=== PATIENT | male | born 2000 | race Caucasian/White ===

== ENCOUNTER → 2020-05-29 11:48 | Outpatient (CLI) | payer BC, SELFPAY ==
--- NOTE | 2020-05-29 12:09 | XR_ITS ---
PROCEDURE: XR SHOULDER RT MIN 2V CLINICAL INDICATION: INJURY TO R SHOULDER Pain following injury COMPARISON: No exams were available for comparison FINDINGS: No fracture or dislocation. No lytic or blastic change. There is normal mineralization. The joint spaces are well-preserved. No significant degenerative/arthritic changes. No erosive changes evident. Other findings:None. IMPRESSION: No acute findings. Dictated by: Farhad Calderon MD 05/29/2020 12:24 Electronically signed by Farhad Calderon MD in [place] 05/29/2020 12:24
== END ==
PROVIDERS: PCP Family Medicine; Visit Provider Nurse Practitioner Family
DX: S49.91XA Unspecified injury of right shoulder and upper arm, initial encounter (principal); M25.611 Stiffness of right shoulder, not elsewhere classified
CPT/HCPCS: 73030

== ENCOUNTER → 2020-06-09 07:51 | Outpatient (CLI) | payer BC, SELFPAY | PROVIDERS: PCP Family Medicine; Visit Provider Nurse Practitioner Family | DX: M25.611 Stiffness of right shoulder, not elsewhere classified (principal) ==

== ENCOUNTER 2021-04-16 18:23 | Emergency (ER) | payer BC, SELFPAY ==
[2021-04-16 18:30] VITALS: BP 136/91; PULSE 76; RESP 19; TEMP 36.8; O2SAT 100; BMI 33.0
--- NOTE | 2021-04-16 19:11 | HMH.EDUTC ---
[facility] [place] Clinical Impression: Sinusitis Qualifiers: Sinusitis location: unspecified location Chronicity: unspecified Qualified Code(s): J32.9 - Chronic sinusitis, unspecified Disposition: Home, Self-Care Condition on Discharge: Good Instructions: Sinusitis, DI for Sinusitis, DI for COVID-19 (Suspected or Confirmed ), Coronavirus Disease 2018, Preventing the Spread of Coronavirus Discharge Instructions Additional Instructions: *Monitor Temp, Over the counter Motrin or Tylenol as directed/as needed Tylenol every 4 hours and Motrin every 6 hours (as long as your family doctor has told you that you can take it) for fever or pain. and straight to ER if unable to lower temp less than 101.0 after medication given *Warm salt water gargles may help to soothe the throat *Throat Lozenges *Warm fluids like tea with honey may help to soothe the throat *Sleep elevated *Humidifier/Vaporizer *Flonase 2 sprays in each nostril daily but be aware that it may take 2-3 days before you notice improvement Follow up IMMEDIATELY for new or worsening symptoms or no Noticeable improvement over the next 48-72 hours. 911 for difficulty breathing or swallowing You were tested for today for COVID19 your test result should be back in the next 24-48 hours, you may call to the [facility] to see if your test results are back in the next 48 hours [phone] [facility] hours are 9am-9pm You was given a handout with instructions for Self Quarantine and Self isolation for while you wait on test results and what to do if they are positive If you are positive the Health Dept will be contacting you also Prescriptions: Fluticasone Propionate [Flonase 50mcg nasal spray 16gm] 1 spr NS DAILY #1 bottle Transmission Status: Pending to [facility] Azithromycin [Z-Regino 250mg Tab] 250 mg PO DIRECTED #6 tab Transmission Status: Pending to [facility] Referrals: Morgan Garcia MD [Primary Care Provider] - As needed Forms: Work/School Release Time of Disposition: 19:23 Medical Decision Making - Aki Inquiry Pt receiving controlled substance: No Aki was queried for this patient: No Vital Signs: 04/16/21 18:30 Temperature 98.2 F Temperature Source Oral Pulse Rate [Right Brachial] 76 Respiratory Rate 19 Blood Pressure [Right Arm] 136/91 H Blood Pressure Mean [Right Arm] 106 Blood Pressure Source [Right Arm] Automatic Cuff Blood Pressure Position [Right Arm] Sitting 02 Sat by Pulse Oximetry 100 Oxygen Delivery Method Room Air Orders (Tests/Meds): ORDERS Category Date Time Status Covid-19 Nasal PCR ([facility]) Routine Lab 04/16/21 19:02 Ordered [facility] UTC HPI - General Stated complaint: Covid Swab Time Seen by Provider: 04/16/21 19:11 Mode of Arrival: Ambulatory Source of Information: Patient Limitations: No Limitations Description of Symptoms (Recalled from Triage Doc. by RN): PATIENT C/O SINUS PRESSURE AND CONGESTION X 3 DAYS HEENT Symptoms (Recalled from RN notes): Yes Resp Symptoms (Recalled from RN notes): No Skin Symptoms (Recalled from RN notes): No MS Symptoms (Recalled from RN notes): No Functional Status (Recalled from RN notes): WNL - History of Present Illness Provider Complaint: Patient states that he started over a week ago with sinus pressure State that on Friday he noticed he couldnt smell anything and since feels like it is trying to move into his chest States that sinus pressure is behind his eyes but he has not been able to blow anything out of his nose Statse that today he was still feeling bad so he came in to get checked and tested for COVID - Related Data Previous Rx's Medication Instructions Recorded Azithromycin [Z-Regino 250mg Tab] 250 mg PO DIRECTED #6 tab 04/16/21 Fluticasone Propionate [Flonase 1 spr NS DAILY #1 bottle 04/16/21 50mcg nasal spray 16gm] Allergies Allergy/AdvReac Type Severity Reaction Status Date / Time No Known Allergies Allergy Verified 08/28/18 13:56 - Worker's Comp
[2021-04-16 19:18] VITALS: BP 136/91; PULSE 76; RESP 19; TEMP 36.8; O2SAT 100
--- NOTE | 2021-04-17 11:33 | PC.NURSE ---
PT NOTIFIED OF POSITIVE COVID RESULTS
== END 2021-04-16 19:20 | disposition home or self-care (01) ==
PROVIDERS: Emergency Provider Nurse Practitioner; PCP Family Medicine
DX: U07.1 COVID-19 (principal)
CPT/HCPCS: 99202; G0463; U0003

== ENCOUNTER 2021-07-30 17:56 | Emergency (ER) | payer BC, SELFPAY ==
[2021-07-30 19:05] VITALS: BP 136/88; PULSE 76; RESP 18; TEMP 36.9; O2SAT 99; BMI 31.4
--- NOTE | 2021-07-30 19:25 | HMH.EDUTC ---
[facility] – [place] Disposition Clinical Impression: Strep throat Disposition: Home, Self-Care Condition on Discharge: Good Instructions: DI for Strep Throat, Strep Throat, Amoxicillin Additional Instructions: *Monitor Temp, Over the counter Motrin or Tylenol as directed/as needed Tylenol every 4 hours and Motrin every 6 hours (as long as your family doctor has told you that you can take it) for fever or pain. and straight to ER if unable to lower temp less than 101.0 after medication given *Warm salt water gargles may help to soothe the throat *Throat Lozenges *Warm fluids like tea with honey may help to soothe the throat *Sleep elevated *Humidifier/Vaporizer *If you did not take Penicillin shot or was unable to, start taking antibiotic immediately and make sure that you take it for the FULL length of time although you should start to feel better in 24-48 hours *change toothbrush and toothpaste 24-48 hours after starting to take antibiotics so you do not reinfect yourself Monitor Temp. Tylenol and/or Ibuprofen as needed. ER if fever is no less than 101 despite alternating Tylenol and Ibuprofen * Encourage fluids, water, Gatorade, powerade, pedialyte if /toddler/or child *Cold fluids, popsicles and ice cream may feel good on his throat Follow up IMMEDIATELY for new or worsening symptoms or no Noticeable improvement over the next 48-72 hours. 911 for difficulty breathing or swallowing Prescriptions: Amoxicillin [Amoxicillin 875MG Tab] 875 mg PO Q12H #20 tab Transmission Status: Pending to [facility] Referrals: Morgan Garcia MD [Primary Care Provider] - As needed Forms: Work/School Release Time of Disposition: 19:28 Medical Decision Making - Aki Inquiry Pt receiving controlled substance: No Aki was queried for this patient: No Vital Signs: 07/30/21 19:05 Temperature 98.5 F Temperature Source Oral Pulse Rate [Right Brachial] 76 Respiratory Rate 18 Blood Pressure [Right Radial Artery] 136/88 Blood Pressure Mean [Right Radial Artery] 104 Blood Pressure Source [Right Radial Artery] Automatic Cuff Blood Pressure Position [Right Radial Artery] Sitting 02 Sat by Pulse Oximetry 99 Oxygen Delivery Method Room Air - Lab Data Lab results reviewed: Yes: I reviewed the patient's lab results. [facility] [place] HPI - General Stated complaint: ears/sore throat,congestion Time Seen by Provider: 07/30/21 19:25 Mode of Arrival: Ambulatory Source of Information: Patient Limitations: No Limitations Description of Symptoms (Recalled from Triage Doc. by RN): PATIENT C/O EAR ACHE AND BLISTERS ON THROAT HEENT Symptoms (Recalled from RN notes): No Resp Symptoms (Recalled from RN notes): No Skin Symptoms (Recalled from RN notes): No MS Symptoms (Recalled from RN notes): No Functional Status (Recalled from RN notes): WNL - History of Present Illness Provider Complaint: Patient states that he has been having sore throat, blisters on his throat and pain in his right ear for about 4 days States that today he was still feeling bad so mother told him he needed to come in and get checked - Related Data Previous Rx's Medication Instructions Recorded Azithromycin [Z-Regino 250mg Tab] 250 mg PO DIRECTED #6 tab 04/16/21 Fluticasone Propionate [Flonase 1 spr NS DAILY #1 bottle 04/16/21 50mcg nasal spray 16gm] Amoxicillin [Amoxicillin 875MG 875 mg PO Q12H #20 tab 07/30/21 Tab] Allergies Allergy/AdvReac Type Severity Reaction Status Date / Time No Known Allergies Allergy Verified 08/28/18 13:56 - Worker's Comp Is this a Worker's Comp case?: No [facility] History - Hepatitis A Screen Drug use history?: No High risk sexual behaviors?: No History of sexually transmitted infection?: No Currently employed?: No Childcare worker?: No Do you have indoor plumbing?: Yes Do you have electricity?: Yes Attestation statement:: This patient has been screened for Hepatitis A risk factors. I have reviewed the patien
[2021-07-30 19:30] VITALS: BP 136/88; PULSE 76; RESP 18; TEMP 36.9; O2SAT 99
[2021-07-30 19:30] LABS: UTC Strep Screen (Rapid) Positive (Negative)
== END 2021-07-30 19:35 | disposition home or self-care (01) ==
PROVIDERS: Emergency Provider Nurse Practitioner; PCP Family Medicine
DX: J02.0 Streptococcal pharyngitis (principal)
CPT/HCPCS: 87880; 99202; G0463

== ENCOUNTER 2021-08-20 13:56 | Emergency (ER) | payer BC, SELFPAY ==
[2021-08-20 14:00] VITALS: BP 156/86; PULSE 78; RESP 20; TEMP 36.8; O2SAT 98; BMI 32.1
[2021-08-20 14:21] LABS: UTC Strep Screen (Rapid) Positive (Negative)
--- NOTE | 2021-08-20 14:41 | HMH.EDUTC ---
[facility] – [place] Disposition Clinical Impression: Strep throat Disposition: Home, Self-Care Condition on Discharge: Good Instructions: DI for Strep Throat, Strep Throat, Azithromycin Additional Instructions: *Monitor Temp, Over the counter Motrin or Tylenol as directed/as needed Tylenol every 4 hours and Motrin every 6 hours (as long as your family doctor has told you that you can take it) for fever or pain. and straight to ER if unable to lower temp less than 101.0 after medication given *Warm salt water gargles may help to soothe the throat *Throat Lozenges *Warm fluids like tea with honey may help to soothe the throat *Sleep elevated *Humidifier/Vaporizer *If you did not take Penicillin shot or was unable to, start taking antibiotic immediately and make sure that you take it for the FULL length of time although you should start to feel better in 24-48 hours *change toothbrush and toothpaste 24-48 hours after starting to take antibiotics so you do not reinfect yourself Monitor Temp. Tylenol and/or Ibuprofen as needed. ER if fever is no less than 101 despite alternating Tylenol and Ibuprofen * Encourage fluids, water, Gatorade, powerade, pedialyte if /toddler/or child *Cold fluids, popsicles and ice cream may feel good on his throat Follow up IMMEDIATELY for new or worsening symptoms or no Noticeable improvement over the next 48-72 hours. 911 for difficulty breathing or swallowing Prescriptions: Azithromycin [Z-Regino 250mg Tab] 250 mg PO DIRECTED #6 tab Transmission Status: Pending to [facility] Referrals: Morgan Garcia MD [Primary Care Provider] - As needed Time of Disposition: 14:48 Medical Decision Making - Aki Inquiry Pt receiving controlled substance: No Aki was queried for this patient: No Vital Signs: 08/20/21 14:00 Temperature 98.3 F Temperature Source Oral Pulse Rate [Right Brachial] 78 Respiratory Rate 20 Blood Pressure [Right Arm] 156/86 H Blood Pressure Mean [Right Arm] 109 Blood Pressure Source [Right Arm] Automatic Cuff Blood Pressure Position [Right Arm] Sitting 02 Sat by Pulse Oximetry 98 Oxygen Delivery Method Room Air - Lab Data Lab results reviewed: Yes: I reviewed the patient's lab results. Lab Results 08/20/21 14:16: Strep Scn Rapid Clinic Positive A Medical Decision Narrative: Patient educated on importance of completing medication as prescribed [facility] [place] HPI - General Stated complaint: Sore thorat Time Seen by Provider: 08/20/21 14:41 Mode of Arrival: Ambulatory Source of Information: Patient Limitations: No Limitations Description of Symptoms (Recalled from Triage Doc. by RN): PATIENT C/O SORE THROAT. PATIENT STATES HE WAS DX WITH STREP AND GIVEN AMOXICILLIN, HOWEVER DID NOT FINISH MEDICATION D/T SIDE EFFECTS. HEENT Symptoms (Recalled from RN notes): Yes Resp Symptoms (Recalled from RN notes): No Skin Symptoms (Recalled from RN notes): No MS Symptoms (Recalled from RN notes): No Functional Status (Recalled from RN notes): WNL - History of Present Illness Provider Complaint: Patient states that he was treated for strep throat a few weeks ago but did not finish taking the medication because it made him feel loopy States that since then he started with sore throat again and hurts when he swallows so he came back in thinking that the infection was back - Related Data Previous Rx's Medication Instructions Recorded Azithromycin [Z-Regino 250mg Tab] 250 mg PO DIRECTED #6 tab 08/20/21 Allergies Allergy/AdvReac Type Severity Reaction Status Date / Time No Known Allergies Allergy Verified 08/28/18 13:56 - Worker's Comp Is this a Worker's Comp case?: No [facility] History - Hepatitis A Screen Drug use history?: No High risk sexual behaviors?: No History of sexually transmitted infection?: No Currently employed?: No Childcare worker?: No Do you have indoor plumbing?: Yes Do you have electricity?: Yes Attestation statement:: This patie
[2021-08-20 14:52] VITALS: BP 156/86; PULSE 78; RESP 20; TEMP 36.8; O2SAT 98
== END 2021-08-20 14:53 | disposition home or self-care (01) ==
PROVIDERS: Emergency Provider Nurse Practitioner; PCP Family Medicine
DX: J02.0 Streptococcal pharyngitis (principal)
CPT/HCPCS: 87880; 99202; G0463

== ENCOUNTER 2021-09-09 10:31 | Emergency (ER) | payer BC, SELFPAY ==
[2021-09-09 11:00] VITALS: BP 138/76; PULSE 87; RESP 19; TEMP 37.1; O2SAT 99; BMI 31.4
--- NOTE | 2021-09-09 11:23 | HMH.EDUTC ---
[place] Disposition Clinical Impression: Sore throat (viral) Disposition: Home, Self-Care Condition on Discharge: Good Instructions: Sore Throat, Clotrimazole Topical Additional Instructions: Over the counter Lotrimin cream may help with dry scaley rash on arm Warm salt water gargles may help with sore throat Follow up with your Family Doctor if no improvement or any worsening of symptoms Return if needed Straight to ER if any life threatening symptoms Referrals: Morgan Garcia MD [Primary Care Provider] - As needed Time of Disposition: 11:44 Medical Decision Making - Aki Inquiry Pt receiving controlled substance: No Aki was queried for this patient: No Vital Signs: 09/09/21 11:00 Temperature 98.7 F Temperature Source Oral Pulse Rate [Right Brachial] 87 Respiratory Rate 19 Blood Pressure [Right Arm] 138/76 Blood Pressure Mean [Right Arm] 96 Blood Pressure Source [Right Arm] Automatic Cuff Blood Pressure Position [Right Arm] Sitting 02 Sat by Pulse Oximetry 99 Oxygen Delivery Method Room Air - Lab Data Lab results reviewed: Yes: I reviewed the patient's lab results. Lab Results 09/09/21 11:31: Strep Scn Rapid Clinic Negative Orders (Tests/Meds): ORDERS Category Date Time Status Strep Screen Confirmation Stat Micro 09/09/21 11:31 Received [place] HPI - General Stated complaint: soa Time Seen by Provider: 09/09/21 11:23 Mode of Arrival: Ambulatory Source of Information: Patient Limitations: No Limitations Description of Symptoms (Recalled from Triage Doc. by RN): PATIENT C/O SWOLLEN LYMPH NODES AND SOA HEENT Symptoms (Recalled from RN notes): Yes Resp Symptoms (Recalled from RN notes): Yes Skin Symptoms (Recalled from RN notes): No MS Symptoms (Recalled from RN notes): No Functional Status (Recalled from RN notes): WNL - History of Present Illness Provider Complaint: Patient states that he was recently seen and treated for strep throat but is still having some sore throat on and off an pain and pressure in his right ear States that he has been having swollen lymph nodes in his neck and he has felt a little SOA on and off for the last few days - Related Data Previous Rx's Medication Instructions Recorded Azithromycin [Z-Regino 250mg Tab] 250 mg PO DIRECTED #6 tab 08/20/21 Allergies Allergy/AdvReac Type Severity Reaction Status Date / Time No Known Allergies Allergy Verified 08/28/18 13:56 - Worker's Comp Is this a Worker's Comp case?: No [facility] History - Hepatitis A Screen Drug use history?: No High risk sexual behaviors?: No History of sexually transmitted infection?: No Currently employed?: No Childcare worker?: No Do you have indoor plumbing?: Yes Do you have electricity?: Yes Attestation statement:: This patient has been screened for Hepatitis A risk factors. I have reviewed the patient's past medical history: Yes Other Surgeries: Yes: No Previous Surgery Amputation: No Fractures: No - Social History Smoking Status: Never smoker Tobacco Type: smokeless tobacco # Packs/Day (cigarettes): 0 Alcohol Intake: never Alcohol Intake Frequency:: a few times a month Substance Use Type: denies use Occupational Status: other Housing: house Household Members: family Family Hx:: Cancer ROS Obtained: Yes All systems reviewed & no additional complaints, Yes Systems reviewed as appropriate & no additional complaints - Constitutional Constitutional: Reports system reviewed and no additional complaints, except as docu, Denies body ache, Denies chills, Reports fever(s) - ENT Ears, Nose, Mouth, and Throat: Reports system reviewed and no additional complaints, except as docu, Reports sore throat - Cardiovascular Cardiovascular: Reports system reviewed and no additional complaints, except as docu - Respiratory Respiratory: Reports system reviewed and no additional complaints, except as docu - Gastrointestinal Gastrointestingal: Reports: system reviewed an
[2021-09-09 11:39] LABS: UTC Strep Screen (Rapid) Negative (Negative)
[2021-09-09 11:59] VITALS: BP 138/76; PULSE 87; RESP 19; TEMP 37.1; O2SAT 99
== END 2021-09-09 12:02 | disposition home or self-care (01) ==
PROVIDERS: Emergency Provider Nurse Practitioner; PCP Family Medicine
DX: J02.9 Acute pharyngitis, unspecified (principal)
CPT/HCPCS: 87880; 99202; G0463

== ENCOUNTER 2021-09-24 23:49 | Emergency (ER) | payer BC, SELFPAY ==
[2021-09-24 23:50] VITALS: BP 145/88; PULSE 79; RESP 18; TEMP 36.7; O2SAT 99; BMI 32.3
--- NOTE | 2021-09-24 23:59 | HMH.EDABDPAI ---
[place] Disposition Clinical Impression: Gastroenteritis Abdominal pain Qualifiers: Abdominal location: right upper quadrant Qualified Code(s): R10.11 - Right upper quadrant pain Disposition: Home, Self-Care Condition on Discharge: Fair Instructions: DI for Acute Abdominal Pain Additional Instructions: Your work-up today did not show any life-threatening or dangerous causes for your belly pain. However, I strongly recommend that you follow-up with a primary care physician to do further testing to find out what is causing your pain. It does not appear that you have appendicitis or an acute gallbladder infection today. He also do not have a urinary tract infection or kidney stones. Please return to the emergency department if you feel worse in any way. Meanwhile, I recommend that you take some alyn-cma-vqoisut antacids as needed. I recommend that you take a clear liquid diet for the next few days. Prescriptions: Dicyclomine HCl [Bentyl 10mg capsule] 10 mg PO QID #30 cap Transmission Status: Received by [facility] Ondansetron [Ondansetron Odt 8mg Tab] 8 mg PO QID 4 Days #16 tab Transmission Status: Received by [facility] Referrals: Morgan Garcia MD [Primary Care Provider] - - Critical Care Critical Care Time: No Attestation: On , the high probability of a clinically significant, sudden or life threatening deterioration of the following system(s) required my full and direct attention, intervention and personal management. The time I documented below is in addition to time spent performing reported procedures but includes the following listed in this critical care notation. Medical Decision Making - Aki Inquiry Pt receiving controlled substance: No Vital Signs: 09/24/21 23:50 Temperature 98.1 F Temperature Source Oral Pulse Rate [Apical] 79 Respiratory Rate 18 Blood Pressure [Right Arm] 145/88 H Blood Pressure Mean [Right Arm] 107 Blood Pressure Source [Right Arm] Automatic Cuff Blood Pressure Position [Right Arm] Sitting 02 Sat by Pulse Oximetry 99 Oxygen Delivery Method Room Air - Lab Data Lab Results 09/24/21 23:55: Urine Color Straw, Urine Appearance Clear, Urine pH 6.5, Ur Specific [place] 1.015, Urine Protein Negative, Urine Glucose (UA) Negative, Urine Ketones Negative, Urine Blood Negative, Urine Nitrate Negative, Urine Bilirubin Negative, Urine Urobilinogen 0.2, Ur Leukocyte Esterase Negative, Ur Squamous Epith Cells Occasional, Urine Bacteria Trace 09/25/21 00:00: WBC 8.5, RBC 5.34, Hgb 16.9, Hct 50.1, MCV 93.8, MCH 31.7 H, MCHC 33.8, RDW 13.3, Plt Count 267, MPV 6.9 L, Neut % (Auto) 48.2, Lymph % (Auto) 42.8, [place] % (Auto) 5.3, Eos % (Auto) 2.1, Baso % (Auto) 1.6, Neut # (Auto) 4.1, Lymph # (Auto) 3.6, [place] # (Auto) 0.5, Eos # (Auto) 0.2, Baso # (Auto) 0.1 09/25/21 00:00: Sodium 139, Potassium 4.1, Chloride 101, Carbon Dioxide 30, Anion Gap 12.1, BUN 13, Creatinine 0.90, Estimated Creat Clear 201, Estimated GFR 105, Est GFR ( Amer) 127, Glucose 106 H, Calcium 9.4, Total Bilirubin 0.5, AST 39, ALT 15, Alkaline Phosphatase 69, Total Protein 8.3 H, Albumin 4.8, Globulin 3.5 H, Albumin/Globulin Ratio 1.4, Lipase 49 Result diagrams: 09/25/21 00:00 09/25/21 00:00 Orders (Tests/Meds): ED MEDICATIONS Discontinued Medications Generic Name Dose Route Start Last Admin Trade Name Freq PRN Reason Stop Dose Admin Dicyclomine HCl 20 mg 09/25/21 01:33 09/25/21 01:41 Dicyclomine 20 Mg/2ml Vial IM 09/25/21 01:34 20 mg ONCE ONE Administration Iopamidol 75 ml 09/25/21 00:38 09/25/21 00:39 Iopamidol-370 (76%);100ml Bottle IV 09/25/21 00:39 75 ml ONCE ONE Administration Ondansetron HCl 4 mg 09/25/21 00:59 09/25/21 01:02 Ondansetron 4mg/2ml Vial IV 09/25/21 01:00 4 mg ONCE ONE Administration Sodium Chloride 10 ml 09/25/21 00:38 09/25/21 00:39 Sodium Chloride 0.9% 10ml Syr (Rad Only) IV 09/25/21 00:39 10 ml ONCE ONE Administrat
--- NOTE | 2021-09-25 00:02 | CT_ITS ---
PROCEDURE INFORMATION: Exam: CT Abdomen And Pelvis With Contrast Exam date and time: 09/25/2021 12:02 AM Age: 21 years old Clinical indication: Nausea and vomiting; Abdominal pain; Localized; Right lower quadrant (rlq); Patient HX: Rlq pain with n/v; Additional info: Right abdominal pain and vomiting TECHNIQUE: Imaging protocol: Computed tomography of the abdomen and pelvis with contrast. Radiation optimization: All CT scans at this facility use at least one of these dose optimization techniques: automated exposure control; mA and/or kV adjustment per patient size (includes targeted exams where dose is matched to clinical indication); or iterative reconstruction. Contrast material: ISOVUE; Contrast volume: 75 ml; Contrast route: IV; COMPARISON: No relevant prior studies available. FINDINGS: Lungs: Uremarkable. No infiltrate. Liver: Unremarkagble.No mass. Gallbladder and bile ducts: Normal. No calcified stones. No ductal dilation. Pancreas: Normal. No ductal dilation. Spleen: Normal. No splenomegaly. Adrenal glands: Normal. No mass. Kidneys and ureters: Normal. No hydronephrosis. Stomach and bowel: Unremarkable. No obstruction. No mucosal thickening. Appendix: No evidence of appendicitis. Intraperitoneal space: Unremarkable. No free air. No significant fluid collection. Vasculature: Unremarkable. No abdominal aortic aneurysm. Lymph nodes: Unremarkable. No enlarged lymph nodes. Urinary bladder: Unremarkable as visualized. Reproductive: Unremarkable as visualized. Bones/joints: Unremarkable. No acute fracture. Soft tissues: Unremarkable. IMPRESSION: No acute or inflammatory disease or bowel obstruction.
[2021-09-25 00:09] LABS: Microscopic, Urine URINE MICROSCOPIC (MICROSCOPIC)
[2021-09-25 00:13] LABS: Basophils # 0.1 K/mm3 (0-0.2); Basophils % 1.6 % (0.1-2.0); Eosinophils # 0.2 K/mm3 (0.0-0.4); Eosinophils % 2.1 % (0.1-12.0); Hematocrit 50.1 % (42.0-52.0); Hemoglobin 16.9 g/dL (14.1-18.0); Lymphocytes # 3.6 K/mm3 (0.7-4.5); Lymphocytes % 42.8 % (10-50); Mean Corpuscular HGB Conc 33.8 g/dL (31.8-35.4); Mean Corpuscular Hemoglobin 31.7 pg (27.0-31.2); Mean Corpuscular Volume 93.8 fl (80-94); Mean Platelet Volume 6.9 fl (7.4-10.4); Monocytes # 0.5 K/mm3 (0.1-1.0); Monocytes % 5.3 % (1.7-9.3); Neutrophils # 4.1 K/mm3 (1.8-7.8); Neutrophils % 48.2 % (37.0-80.0); Platelet Count 267 K/mm3 (142-424); Red Blood Count 5.34 M/mm3 (4.60-6.20); Red Cell Distribution Width 13.3 % (11.5-17.5); White Blood Count 8.5 K/mm3 (4.8-10.8)
[2021-09-25 00:16] LABS: Chloride 101 mmol/L (98-107); Potassium 4.1 mmoL/L (3.5-5.1); Sodium 139 mmol/L (136-145)
[2021-09-25 00:18] LABS: Appearance,Urine CLEAR (Clear); Bilirubin,Urine Negative (Negative); Blood, Urine Negative (Negative); Color,Urine STRAW (Yellow); Glucose,Urine (UA) Negative (Negative); Ketones,Urine Negative (Negative); Leukocyte Esterase,Urine Negative (Negative); Nitrate,Urine Negative (Negative); PH,Urine 6.5 (5.0-8.5); Protein,Urine Negative (Negative); Specific Gravity, Urine 1.015 (1.005-1.030); Urobilinogen,Urine 0.2 EU/dl (0.2)
[2021-09-25 00:18] LABS: Alanine Aminotransferase 15 U/L (12-78); Aspartate Amino Transferase 39 U/L (17-59); Blood Urea Nitrogen 13 mg/dl (9-20); Creatinine Clearance Estimated 201 mL/min (50-200); Estimated Glomerular Filt Rate 105 ml/min (>60); GFR (African American) 127 ML/MIN (>60)
[2021-09-25 00:19] LABS: Albumin Level 4.8 g/dl (3.5-5.0); Albumin/Globulin Ratio 1.4 (1.1-1.8); Alkaline Phosphatase 69 U/L (38-126); Anion Gap 12.1 mEq/L (5-15); Bilirubin,Total 0.5 mg/dl (0.2-1.3); Calcium 9.4 mg/dl (8.4-10.2); Carbon Dioxide 30 mmol/L (22.0-30.0); Globulin 3.5 g/dL (1.3-3.2); Glucose 106 mg/dl (74-100); Lipase 49 U/L (23-300); Total Protein,Serum 8.3 g/dl (6.3-8.2)
[2021-09-25 00:30] LABS: Bacteria,Urine Trace /lpf; Squamous Epithelial Cell,Urine Occasional #/hpf (0-5)
[2021-09-25 02:12] VITALS: BP 145/88; PULSE 88; RESP 22; TEMP 36.8; O2SAT 99
== END 2021-09-25 02:28 | disposition home or self-care (01) ==
PROVIDERS: Emergency Provider Emergency Medicine; PCP Family Medicine
DX: K52.9 Noninfective gastroenteritis and colitis, unspecified (principal); F17.290 Nicotine dependence, other tobacco product, uncomplicated
CPT/HCPCS: 74177; 80053; 81001; 83690; 85025; 96372; 96375; 99282; J2405; Q9967

== ENCOUNTER → 2021-09-28 08:19 | Outpatient (CLI) | payer BC, SELFPAY ==
--- NOTE | 2021-09-28 08:25 | US_ITS ---
PROCEDURE: US ABDOMEN LIMITED CLINICAL INDICATION: RUQ PAIN COMPARISON: No exams were available for comparison FINDINGS: PANCREAS: Tail of the pancreas poorly demonstrated due to overlying bowel gas. LIVER: No focal liver lesions demonstrated. Homogeneous echogenicity. No intrahepatic biliary ductal dilatation evident. There is appropriate direction of blood flow within a non dilated portal vein RIGHT KIDNEY: Unremarkable. Normal size and echogenicity. No hydronephrosis GALLBLADDER: No gallstones, gallbladder wall thickening, pericholecystic fluid, or biliary dilatation. IMPRESSION: Unremarkable limited abdominal ultrasound as detailed above disc Dictated by: Farhad Calderon MD 09/28/2021 16:38 Farhad Calderon MD in [place] 09/28/2021 16:38
== END ==
PROVIDERS: PCP Family Medicine; Visit Provider Family Medicine
DX: R10.11 Right upper quadrant pain (principal)
CPT/HCPCS: 76705

== ENCOUNTER → 2021-10-15 10:12 | Outpatient (CLI) | payer BC, SELFPAY ==
--- NOTE | 2021-10-15 10:16 | NM_ITS ---
PROCEDURE: NM HEPATOBILIARY W PHARM CLINICAL INDICATION: RUQ ABD PAIN COMPARISON: US US ABDOMEN LIMITED from 09/28/2021 TECHNIQUE: DOSE: 8.03 mCi technetium Choletec. Fatty meal with Ensure FINDINGS: Homogeneous activity is present within the hepatic parenchyma. Activity is present in the gallbladder by 5 minutes. Activity is present in the small bowel by 60 minutes. The gallbladder ejection fraction is calculated to be 47 percent. No pain reported with fatty meal IMPRESSION: No evidence of common or cystic duct obstruction. Gallbladder ejection fraction is within normal limits. Dictated by: Farhad Calderon MD 10/15/2021 13:36 Farhad Calderon MD in [place] 10/15/2021 13:36
== END ==
PROVIDERS: PCP Family Medicine; Visit Provider Family Medicine
DX: R10.11 Right upper quadrant pain (principal)
CPT/HCPCS: 78227; A9537

== ENCOUNTER 2022-04-13 17:41 | Emergency (ER) | payer BC, SELFPAY ==
--- NOTE | 2022-04-13 17:58 | HMH.EDUTC ---
[facility] [place] Clinical Impression: Yeast infection of the skin Disposition: Home, Self-Care Condition on Discharge: Good Instructions: Nystatin, Fluconazole, DI for Yeast Infection-Skin Additional Instructions: Drink plenty of fluids. Take the medication as directed. Wear loose fiting underwear and clothes as much time as possible to let plenty of air circulate around where you have this irritation. Make sure you dry off thoroughly after showering. Use the topical medication as directed. Follow up with your regular doctor. GO TO THE ER FOR ANY WORSENING SYMPTOMS Prescriptions: Fluconazole [Diflucan 150mg tab] 150 mg PO DAILY #2 tab Transmission Status: Received by [facility] Nystatin [Nystatin Cr 100,000 Units/GM 30GM] 1 applicatio TP BID 14 Days #1 gm Transmission Status: Received by [facility] Referrals: Provider,Referral, [Primary Care Provider] - Time of Disposition: 18:42 Medical Decision Making - Medical Records Medical records reviewed: No: I reviewed the patient's medical records. - Aki Inquiry Pt receiving controlled substance: No Vital Signs: 04/13/22 18:10 04/13/22 18:38 Temperature 99.0 F 99.0 F Temperature Source Oral Pulse Rate 93 H Pulse Rate [Left Radial] 93 H Respiratory Rate 19 19 Blood Pressure 143/83 H Blood Pressure [Right Arm] 142/83 H Blood Pressure Mean [Right Arm] 102 02 Sat by Pulse Oximetry 99 - Lab Data Lab Results 04/13/22 18:12: Urine Color Yellow, Urine Appearance Clear, Urine pH 6.5, Ur Specific [place] 1.015, Urine Protein Negative, Urine Glucose (UA) Negative, Urine Ketones Negative, Urine Blood Negative, Urine Nitrate Negative, Urine Bilirubin Negative, Urine Urobilinogen 1, Ur Leukocyte Esterase Negative Orders (Tests/Meds): ORDERS Category Date Time Status Urine Culture Stat Micro 04/13/22 18:02 Received [facility] [place] [place] - General Stated complaint: rash on genitals Time Seen by Provider: 04/13/22 17:58 - History of Present Illness Provider Complaint: He states that for the past 4 days he has had irritation of the skin on his penis. His girlfriend recently had a yeast infection and he thinks he may have caught it off of her. - Related Data Previous Rx's Medication Instructions Recorded Azithromycin [Z-Regino 250mg Tab] 250 mg PO DIRECTED #6 tab 08/20/21 Dicyclomine HCl [Bentyl 10mg 10 mg PO QID #30 cap 09/25/21 capsule] Ondansetron [Ondansetron Odt 8mg 8 mg PO QID 4 Days #16 tab 09/25/21 Tab] Fluconazole [Diflucan 150mg tab] 150 mg PO DAILY #2 tab 04/13/22 Nystatin [Nystatin Cr 100,000 1 applicatio TP BID 14 Days #1 gm 04/13/22 Units/GM 30GM] Allergies Allergy/AdvReac Type Severity Reaction Status Date / Time No Known Allergies Allergy Verified 08/28/18 13:56 [facility] History - Hepatitis A Screen Attestation statement:: This patient has been screened for Hepatitis A risk factors. I have reviewed the patient's past medical history: Yes Other Surgeries: Yes: No Previous Surgery Amputation: No Fractures: No - Social History Smoking Status: Never smoker Tobacco Type: smokeless tobacco # Packs/Day (cigarettes): 0 Alcohol Intake: never Alcohol Intake Frequency:: a few times a month Substance Use Type: denies use Occupational Status: other Housing: house Household Members: family Family Hx:: Cancer ROS Obtained: Yes All systems reviewed & no additional complaints - Constitutional Constitutional: Denies chills, Denies fever(s) - Genitourinary Male Genitourinary: Denies difficulty urinating, Denies urinary frequency, Denies urinary hesitancy - Musculoskeletal Musculoskeletal: Denies joint pain, Denies back pain - Integumentary/Breasts Skin/Breast: Reports as per HPI Physical Exam - General General appearance: alert, in no apparent distress - Head Head exam: atraumatic, normocephalic, normal inspection - Eye Eye exam: Present: n
[2022-04-13 18:10] VITALS: BP 142/83; PULSE 93; RESP 19; TEMP 37.2; O2SAT 99; BMI 30.2
[2022-04-13 18:15] LABS: Apearance,Urine Clear (Clear); Bilirubin,Urine Negative (Negative); Blood, Urine Negative (Negative); Color,Urine Yellow (Yellow); Glucose,Urine (UA) Negative (Negative); Ketones,Urine Negative (Negative); PH,Urine 6.5 (5.0-8.5); Protein,Urine Negative (Negative); Specific Gravity, Urine 1.015 (1.005-1.030)
[2022-04-13 18:16] LABS: UTC Leukocyte Esterase,Urine Negative (Negative); UTC Nitrate,Urine Negative (Negative); Urobilinogen,Urine 1 EU/dl (0.2)
[2022-04-13 18:38] VITALS: BP 143/83; PULSE 93; RESP 19; TEMP 37.2
[2022-04-16 22:38] LABS: Neisseria gonorrhoeae, NAA Negative (Negative)
== END 2022-04-13 18:50 | disposition home or self-care (01) ==
PROVIDERS: Emergency Provider Nurse Practitioner Family
DX: B37.9 Candidiasis, unspecified (principal); R21 Rash and other nonspecific skin eruption; Z79.51 Long term (current) use of inhaled steroids; Z80.9 Family history of malignant neoplasm, unspecified
CPT/HCPCS: 81003; 87086; 87491; 87591; 99213; G0463